=== PATIENT | male | born 1970 | race Caucasian/White ===

== ENCOUNTER 2021-07-18 20:57 | Inpatient (IN) | payer SELFPAY ==
[~2021-07-18] VITALS: Ht 190 cm; Wt 150.0 kg
[2021-07-18] MEDS ORDERED: LACTATED RINGERS 1,000 ML IV ONE (21:45)
[2021-07-18] MEDS ORDERED: fentaNYL INJ 100 MCG/2 ML AMP IVP ONE (21:45)
[2021-07-18 22:19] LABS: BASOPHILS % (AUTO) 0 % (0-10); EOSINOPHILS # (AUTO) 0.1 10^3/uL (0.0-0.3); EOSINOPHILS % (AUTO) 1 % (0-10); HEMATOCRIT 44 % (40-54); HEMOGLOBIN 14.4 g/dL (13.3-17.7); LYMPHOCYTES # (AUTO) 1.6 10^3/uL (1.0-4.0); LYMPHOCYTES % (AUTO) 11 % (12-44); MEAN CORPUSCULAR HEMOGLOBIN 32 pg (25-34); MEAN CORPUSCULAR HGB CONC 33 g/dL (32-36); MEAN CORPUSCULAR VOLUME 97 fL (80-99); MEAN PLATELET VOLUME 9.8 fL (9.0-12.2); MONOCYTES # (AUTO) 0.9 10^3/uL (0.0-1.0); MONOCYTES % (AUTO) 7 % (0-12); NEUTROPHILS # (AUTO) 11.3 10^3/uL (1.8-7.8); NEUTROPHILS % (AUTO) 81 % (42-75); PLATELET COUNT 235 10^3/uL (130-400)
[2021-07-18 22:33] LABS: ALBUMIN 4.2 GM/DL (3.2-4.5); BILIRUBIN,TOTAL 1.1 MG/DL (0.1-1.0); CALCIUM 9.3 MG/DL (8.5-10.1); CREATININE SERUM 1.18 MG/DL (0.60-1.30); POTASSIUM 4.6 MMOL/L (3.6-5.0); TOTAL PROTEIN 7.6 GM/DL (6.4-8.2)
[2021-07-18 22:34] LABS: EOSINOPHILS % (MANUAL) 1 %; LYMPHOCYTES % (MANUAL) 13 %; NEUTROPHILS % (MANUAL) 86 %; RBC MORPH NORMAL
[2021-07-18 23:01] LABS: CLARITY,URINE CLEAR; COLOR,URINE ORANGE; GLUCOSE, URINE (UA) NEGATIVE (NEGATIVE); KETONES,URINE NEGATIVE (NEGATIVE); LEUKOCYTE ESTERASE ,URINE NEGATIVE (NEGATIVE); NITRITE,URINE NEGATIVE (NEGATIVE); PH,URINE 7.5 (5-9); PROTEIN,URINE 2+ (NEGATIVE)
[2021-07-18 23:12] LABS: BACTERIA,URINE TRACE /HPF; BILIRUBIN,URINE 1+ (NEGATIVE); GRANULAR CASTS,URINE 0-2 /LPF; SQUAMOUS EPITHELIAL CELL,UR 0-2 /HPF; WBC,URINE 0-2 /HPF
[2021-07-18] MEDS ORDERED: morphine INJ 10 MG/ML 1ML (SYR OR VIAL) IVP STA (23:20)
[2021-07-18] MEDS ORDERED: IOHEXOL 350 MG/ML 100 ML (OMNIPAQUE 350) VIAL IV ONE (23:30)
[2021-07-18] MEDS ORDERED: HOLD METFORMIN - RECEIVED CONTRAST 20 ML VIAL IV SCH (23:30)
[2021-07-18] MEDS ORDERED: NS 100 ML (IVPB) BAG IV ONE (23:30)
--- NOTE | 2021-07-18 23:52 | ED Abdominal Pain ---
General Chief Complaint: Abdominal/GI Problems Stated Complaint: ABD PAIN / FEVER Nursing Triage Note: C/o abd pain starting bilat up quad to right lower on saturday07/16/21. Denies nausea and vomitting. Reports that he has only had a small bm on saturday but "not a good one in a while". Source of Information: Patient Exam Limitations: No Limitations History of Present Illness Date Seen by Provider: Jul 18, 2021 Time Seen by Provider: 21:24 Initial Comments This 51-year-old gentleman presents to the emergency room with lower abdominal pain that started 3 days ago. He thought perhaps he was constipated and took a laxative and an enema. This did not resolve his symptoms. He reports pain is 8 out of 10. He has pain with walking and movement as well as at rest. He has had chills and sweats developed today. He is afebrile. Denies of vomiting or diarrhea. No bloody stools. No prior episodes. Allergies and Home Medications Allergies Coded Allergies: No Known Drug Allergies (Unverified , 03/21/13) Patient Home Medication List Home Medication List Reviewed: Yes Review of Systems Review of Systems Constitutional: see HPI, chills EENTM: No Symptoms Reported Respiratory: No Symptoms Reported Cardiovascular: No Symptoms Reported Gastrointestinal: See HPI Genitourinary: No Symptoms Reported Musculoskeletal: no symptoms reported Skin: no symptoms reported Psychiatric/Neurological: No Symptoms Reported Endocrine: No Symptoms Reported Past Pfufrpp-Nvbyxx-Neoqnk Hx Patient Social History Tobacco Use?: Yes Tobacco type used: Cigarettes Smoking Status: Current Everyday Smoker Substance use?: No Alcohol Use?: Yes Alcohol Frequency: Rarely Immunizations Up To Date Tetanus Booster (TDap): More than 5yrs Past Medical History Surgeries: Yes Abdominal (Hernia repair at age 6) Respiratory: No Cardiac: No Neurological: No Reproductive Disorders: No Genitourinary: No Gastrointestinal: No Musculoskeletal: No Endocrine: No HEENT: No Cancer: No Psychosocial: No Integumentary: No Physical Exam Vital Signs Vital Signs - First Documented 07/18/21 21:10 Temp 37.3 Pulse 64 Resp 18 B/P (MAP) 104/62 (76) Pulse Ox 98 O2 Delivery Room Air Capillary Refill : Less Than 3 Seconds Height/Weight/BMI Height: '" Weight: lbs. oz. kg; 52.00 BMI Method:Stated General Appearance: WD/WN, moderate distress, obese HEENT: PERRL/EOMI, normal ENT inspection Neck: normal inspection Respiratory: lungs clear, normal breath sounds, no respiratory distress Cardiovascular: regular rate, rhythm, no edema, no murmur Gastrointestinal: soft, abnormal bowel sounds (Decreased), tenderness (Generalized, more intense in the lower quadrants) Extremities: normal inspection, no pedal edema Neurologic/Psychiatric: manager print II-XII nml as tested, no motor/sensory deficits, alert, normal mood/affect, oriented x 3 Skin: normal color, warm/dry Progress/Results/Core Measures Results/Orders Lab Results Laboratory Tests Test 07/18/21 22:07 07/18/21 22:57 Range/Units White Blood Count 14.0 H 4.3-11.0 10^3/uL Red Blood Count 4.57 4.30-5.52 10^6/uL Hemoglobin 14.4 13.3-17.7 g/dL Hematocrit 44 40-54 % Mean Corpuscular Volume 97 80-99 fL Mean Corpuscular Hemoglobin 32 25-34 pg Mean Corpuscular Hemoglobin Concent 33 32-36 g/dL Red Cell Distribution Width 13.5 10.0-14.5 % Platelet Count 235 130-400 10^3/uL Mean Platelet Volume 9.8 9.0-12.2 fL Immature Granulocyte % (Auto) 0 % Neutrophils (%) (Auto) 81 H 42-75 % Lymphocytes (%) (Auto) 11 L 12-44 % Monocytes (%) (Auto) 7 0-12 % Eosinophils (%) (Auto) 1 0-10 % Basophils (%) (Auto) 0 0-10 % Neutrophils # (Auto) 11.3 H 1.8-7.8 10^3/uL Lymphocytes # (Auto) 1.6 1.0-4.0 10^3/uL Monocytes # (Auto) 0.9 0.0-1.0 10^3/uL Eosinophils # (Auto) 0.1 0.0-0.3 10^3/uL Basophils # (Auto) 0.0 0.0-0.1 10^3/uL Immature Granulocyte # (Auto) 0.1 0.0-0.1 10^3/uL Neutrophils % (Manual) 86 % Lymphocytes % (Manual) 13 % Eosinophils % (Manual) 1 % Blood Morphology Comment NORMAL Sodium Level 136 135-145 MMOL/L Potassium Level 4.6 3.6-5.0 MMOL/L Chloride Level 102 98-107 MMOL/L Carbon Dioxide Level 23 21-32 MMOL/L Anion Gap 11 5-14 MMOL/L Blood Urea Nitrogen 10 7-18 MG/DL Creatinine 1.18 0.60-1.30 MG/DL Estimat Glomerular Filtration Rate 65 BUN/Creatinine Ratio 8 Glucose Level 142 H 70-105 MG/DL Calcium Level 9.3 8.5-10.1 MG/DL Corrected Calcium 9.1 8.5-10.1 MG/DL Total Bilirubin 1.1 H 0.1-1.0 MG/DL Aspartate Amino Transf (AST/SGOT) 15 5-34 U/L Alanine Aminotransferase (ALT/SGPT) 20 0-55 U/L Alkaline Phosphatase 67 40-136 U/L C-Reactive Protein High Sensitivity 14.30 H 0.00-0.50 MG/DL Total Protein 7.6 6.4-8.2 GM/DL Albumin 4.2 3.2-4.5 GM/DL Lipase 14 8-78 U/L Urine Color ORANGE Urine Clarity CLEAR Urine pH 7.5 5-9 Urine Specific [place] 1.015 L 1.016-1.022 Urine Protein 2+ H NEGATIVE Urine Glucose (UA) NEGATIVE NEGATIVE Urine Ketones NEGATIVE NEGATIVE Urine Nitrite NEGATIVE NEGATIVE Urine Bilirubin 1+ H NEGATIVE Urine Urobilinogen 0.2 < = 1.0 MG/DL Urine Leukocyte Esterase NEGATIVE NEGATIVE Urine RBC (Auto) NEGATIVE NEGATIVE Urine RBC NONE /HPF Urine WBC 0-2 /HPF Urine Squamous Epithelial Cells 0-2 /HPF Urine Crystals NONE /LPF Urine Bacteria TRACE /HPF Urine Casts PRESENT /LPF Urine Hyaline Casts 2-5 H /LPF Urine Granular Casts 0-2 H /LPF Urine Mucus NEGATIVE /LPF Urine Culture Indicated NO My Orders Orders - EMILIE TRAYLOR MD Cbc With Automated Diff (07/18/21 21:20) Comprehensive Metabolic Panel (07/18/21 21:20) Hs C Reactive Protein (07/18/21 21:20) Lipase (07/18/21 21:20) Ua Culture If Indicated (07/18/21 21:20) Ed Iv/Invasive Line Start (07/18/21 21:20) Lactated Ringers (Lr 1000 Ml Iv Solution (07/18/21 21:45) Fentanyl Inj (Sublimaze Injection) (07/18/21 21:45) Manual Differential (07/18/21 22:07) Ct Abdomen/Pelvis W (07/18/21 22:43) Morphine Injection (Morphine Injection (07/18/21 23:20) Iohexol Injection (Omnipaque 350 Mg/Ml 1 (07/18/21 23:30) Received Contrast (Hold Metformin- Contr (07/18/21 23:30) Ns (Ivpb) (Sodium Chloride 0.9% Ivpb Bag (07/18/21 23:30) Piperacillin Sodium/Tazobactam (Zosyn Vi (07/19/21 00:00) Medications Given in ED Current Medications Medications Dose Ordered Sig/Bobby Route Start Time Stop Time Status Last Admin Dose Admin Fentanyl Citrate 50 mcg ONCE ONCE IVP 07/18/21 21:45 07/18/21 21:46 DC 07/18/21 21:53 50 MCG Iohexol 100 ml ONCE ONCE IV 07/18/21 23:30 07/18/21 23:36 DC 07/18/21 23:29 100 ML Lactated Ringer's 1,000 ml @ 0 mls/hr Q0M ONCE IV 07/18/21 21:45 07/18/21 21:46 DC 07/18/21 21:52 1,000 MLS/HR Sodium Chloride 100 ml ONCE ONCE IV 07/18/21 23:30 07/18/21 23:36 DC 07/18/21 23:29 80 ML Vital Signs/I&O 07/18/21 21:10 Temp 37.3 Pulse 64 Resp 18 B/P (MAP) 104/62 (76) Pulse Ox 98 O2 Delivery Room Air 07/19/21 00:00 Intake Total 1000 ml Balance 1000 ml Blood Pressure Mean: 76 Progress Progress Note : Progress Note Patient was treated with fentanyl, morphine, and IV fluids. WBC and CRP were elevated. Further work-up was pursued with CT scan which revealed acute appendicitis. Case was discussed with Dr. Rizzo who would like to operate as an early case this morning. In the meantime, he requests Zosyn be initiated. The first dose was ordered to receive in the ER. Departure Communication (Admissions) Time/Spoke to Admitting Phy: 23:45 Dr. Rizzo Impression Primary Impression: Acute appendicitis Qualified Codes: K35.20 - Acute appendicitis with generalized peritonitis, without abscess Disposition: ADMITTED INPATIENT Condition: Stable Admissions Decision to Admit Reason: Admit from ER (General) Decision to Admit/Date: Jul 18, 2021 Time/Decision to Admit Time: 23:30 Departure-Patient Inst. Referrals: NO,LOCAL PHYSICIAN (PCP/Family) Primary Care Physician EMILIE TRAYLOR MD Jul 18, 2021 23:52
[2021-07-19] VITALS (10 sets, daily range): BP systolic 96–122; BP diastolic 49–72
[2021-07-19] MEDS ORDERED: PIPERACILLIN SODIUM/TAZOBACTAM 4.5 GM in NS (IVPB) 100 ML IV ONE ×2
[2021-07-19] MEDS ORDERED: LACTATED RINGERS 1,000 ML IV ONE (00:55)
[2021-07-19] MEDS: morphine INJ 4 MG/ML 1 ML (VIAL/SYRINGE) IV PRN ×4 (01:08→18:50)
[2021-07-19] MEDS: LACTATED RINGERS 1,000 ML IV SCH ×4 (01:11→22:50)
[2021-07-19] MEDS ORDERED: ACETAMINOPHEN 325 MG TABLET ONE (03:27)
[2021-07-19] MEDS ORDERED: ACETAMINOPHEN 325 MG TABLET PO PRN (03:30)
[2021-07-19] MEDS: PIPERACILLIN/TAZO 4.5 GM/NS 100 ML IV SCH ×6 (06:02→20:46)
[2021-07-19] MEDS ORDERED: NS IV ONE (06:15)
--- NOTE | 2021-07-19 06:17 | Diagnostic Imaging Report ---
EXAMINATION: CT abdomen and pelvis with intravenous contrast. TECHNIQUE: Multiple contiguous axial images were obtained through the abdomen and pelvis after the uneventful administration of intravenous contrast. All CT scans use one or more of the following dose optimizing techniques: automated exposure control, MA and/or KvP adjustment based on patient size and exam type or iterative reconstruction. HISTORY: Lower abdominal pain. COMPARISON: None available. FINDINGS: The heart is unremarkable. The included lung bases are clear. There is hepatic steatosis. No focal hepatic lesions. The gallbladder is unremarkable. The portal vein is patent. The spleen, pancreas, adrenal glands, and kidneys have a normal appearance. There is no pathologically enlarged mesenteric or retroperitoneal adenopathy. The appendix is fluid-filled and dilated measuring 1.3 cm in diameter. Appendicolith is noted within the neck of the appendix. There is periappendicular fat stranding. No evidence of bowel obstruction. There is a small amount of reactive free fluid in the abdomen and pelvis without evidence of free air. No acute osseous abnormalities. Ureters and bladder are grossly normal. There is no free air, loculated collection, or adenopathy in the pelvis. IMPRESSION: 1. Findings consistent with acute appendicitis. Small amount of free fluid is seen in the pelvis. No evidence of free air. 2. Hepatic steatosis. Agree with overnight report. Dictated by: Dictated on workstation # [id number]
--- NOTE | 2021-07-19 06:19 | History & Physical-Surgical ---
ANDI QUINONEZ MED STUDENT 07/19/21 0619: History of Present Illness History of Present Illness Reason for visit/HPI Patient presented last night to [facility] complaining of severe abdominal pain (8/10) most noticeable in rlq. It started on 07/16 in the evening as a dull supraumbillical pain that progressed to a severe "pinching" pain that has seemed to wax and wane that mainly localized to the rlq with some radiation to the RUQ and supravesicular. He reports subjective fever and sweats with max temp while here of 39.2. Some loss of appetite since saturday, no nausea or vomiting. He reports nothing made it better, and movement seemed to make pain worse. His last "good bowel movement" was saturday night, had small bowel movement saturday night. He last ate some yogurt around 14:30 yesterday. He is not on any blood thinners. Date of Admission Jul 18, 2021 at 23:50 Date Seen by a Provider: Jul 19, 2021 Time Seen by a Provider: 06:00 I consulted on this patient on 07/19/21 06:12 Attending Physician Matthew Rizzo DO Admitting Physician No,Local Physician Consult Allergies and Home Medications Allergies Coded Allergies: No Known Drug Allergies (Unverified , 03/21/13) Patient Home Medication List Home Medication List Reviewed: Yes Past Gvtswas-Pnjlmm-Snnxzc Hx Patient Social History Tobacco Use?: Yes Tobacco type used: Cigarettes Smoking Status: Current Everyday Smoker Smokeless Tobacco Frequency: Never a User Use of E-Cig and/or Vaping dev: No Substance use?: No Alcohol Use?: Yes (avg 1 drink/month) Alcohol Frequency: Rarely Pt feels they are or have been: No Current Status Advance Directives: No Communicates: Verbally Primary Language: Fijian Preferred Spoken Language: Fijian Is interpretation needed?: No Implanted or Applied Medical D: None Past Medical History Surgeries: Abdominal (inguinal hernia repair 6 years old) Currently Using CPAP: No Currently Using BIPAP: No Blood Disorders: No Adverse Reaction/Blood Tranf: No Family Medical History Cancer (greatgrand father (bone)), Diabetes (mother) Review of Systems Constitutional: chills, fever EENTM: No hearing loss, No blurred vision Respiratory: cough (intermittent); No hemoptysis, No short of breath Gastrointestinal: abdominal pain, constipation, loss of appetite Genitourinary: No dysuria; frequency (decreased); No hematuria Musculoskeletal: joint pain, muscle stiffness Skin: No dryness, No lesions, No lumps, No rash Psychiatric/Neurological: Denies Headache, Denies Tingling, Denies Tremors Physical Exam Vital Signs Vital Signs - First Documented 07/18/21 21:10 Temp 37.3 Pulse 64 Resp 18 B/P (MAP) 104/62 (76) Pulse Ox 98 O2 Delivery Room Air Capillary Refill : Less Than 3 Seconds Height, Weight, BMI Height: '" Weight: lbs. oz. kg; 41.55 BMI Method:Stated General Appearance: WD/WN, Mild Distress Eyes: Bilateral Eye Normal Inspection, Bilateral Eye PERRL, Bilateral Eye EOMI HEENT: TMs Normal, Pharynx Normal; No Scleral Icterus (L), No Scleral Icterus (R) Neck: Normal Inspection, Non Tender, Supple Respiratory: Chest Non Tender, Lungs Clear, Normal Breath Sounds, No Accessory Muscle Use, No Respiratory Distress Cardiovascular: Regular Rate, Rhythm, No Murmur, Normal Peripheral Pulses Gastrointestinal: No Guarding, No Rebound; Tenderness (ttp in RLQ, RUQ, LLQ, most focally in RLQ) Rectal: Deferred Back: Normal Inspection, No CVA Tenderness Extremity: Normal Capillary Refill, Normal Range of Motion Neurologic/Psychiatric: Alert, Oriented x3 Skin: Normal Color, Warm/Dry Lymphatic: No Adenopathy (cervical, axilla, groin) Data Review Labs Laboratory Tests 07/18/21 22:07: White Blood Count 14.0H, Red Blood Count 4.57, Hemoglobin 14.4, Hematocrit 44, Mean Corpuscular Volume 97, Mean Corpuscular Hemoglobin 32, Mean Corpuscular Hemoglobin Concent 33, Red Cell Distribution Width 13.5, Platelet Count 235, Mean Platelet Volume 9.8, Immature Granulocyte % (Auto) 0, Neutrophils (%) (Auto) 81H, Lymphocytes (%) (Auto) 11L, Monocytes (%) (Auto) 7, Eosinophils (%) (Auto) 1, Basophils (%) (Auto) 0, Neutrophils # (Auto) 11.3H, Lymphocytes # (Auto) 1.6, Monocytes # (Auto) 0.9, Eosinophils # (Auto) 0.1, Basophils # (Auto) 0.0, Immature Granulocyte # (Auto) 0.1, Neutrophils % (Manual) 86, Lymphocytes % (Manual) 13, Eosinophils % (Manual) 1, Blood Morphology Comment NORMAL, Sodium Level 136, Potassium Level 4.6, Chloride Level 102, Carbon Dioxide Level 23, Anion Gap 11, Blood Urea Nitrogen 10, Creatinine 1.18, Estimat Glomerular Filtration Rate 65, BUN/Creatinine Ratio 8, Glucose Level 142H, Calcium Level 9.3, Corrected Calcium 9.1, Total Bilirubin 1.1H, Aspartate Amino Transf (AST/SGOT) 15, Alanine Aminotransferase (ALT/SGPT) 20, Alkaline Phosphatase 67, C-Reactive Protein High Sensitivity 14.30H, Total Protein 7.6, Albumin 4.2, Lipase 14 07/18/21 22:57: Urine Color ORANGE, Urine Clarity CLEAR, Urine pH 7.5, Urine Specific [place] 1.015L, Urine Protein 2+H, Urine Glucose (UA) NEGATIVE, Urine Ketones NEGATIVE, Urine Nitrite NEGATIVE, Urine Bilirubin 1+H, Urine Urobilinogen 0.2, Urine Leukocyte Esterase NEGATIVE, Urine RBC (Auto) NEGATIVE, Urine RBC NONE, Urine WBC 0-2, Urine Squamous Epithelial Cells 0-2, Urine Crystals NONE, Urine Bacteria TRACE, Urine Casts PRESENT, Urine Hyaline Casts 2-5H, Urine Granular Casts 0-2H, Urine Mucus NEGATIVE, Urine Culture Indicated NO 07/19/21 00:20: SARS-CoV-2 RNA (RT-PCR) Not Detected Assessment/Plan Assessment/Plan Assessment/Plan Acute appendicitis taking for lap appy, risk and benefits discussed patient understands and wishes to precede. MATTHEW RIZZO DO 07/19/21 0639: History of Present Illness History of Present Illness Reason for visit/HPI Patient with umbilical abdominal pain that moved to right lower quadrant. Patient started having pain Saturday and has progressed. Pinching severe pain. Has had fever. Loss of appetite. No n/v. Movement makes worse. Pain medication has helped pain. Denies sweats chills shortness of breath or chest pain. CT scan done demonstrating findings consistent with acute appendicitis. Allergies and Home Medications Allergies Coded Allergies: No Known Drug Allergies (Unverified , 03/21/13) Patient Home Medication List Home Medication List Reviewed: Yes Review of Systems Constitutional: chills, fever EENTM: No hearing loss, No blurred vision Respiratory: No hemoptysis, No short of breath Gastrointestinal: abdominal pain (RLQ), constipation, loss of appetite Genitourinary: No dysuria; frequency (decreased); No hematuria Musculoskeletal: joint pain, muscle stiffness Skin: No dryness, No lesions, No lumps, No rash Psychiatric/Neurological: Denies Headache, Denies Tingling, Denies Tremors All Other Systems Reviewed Negative Unless Noted: Yes (Negative excepted noted.) Physical Exam General Appearance: No Apparent Distress, WD/WN HEENT: PERRL/EOMI, Pharynx Normal Neck: Normal Inspection, Non Tender, Supple Respiratory: Chest Non Tender, No Accessory Muscle Use, No Respiratory Distress Cardiovascular: Regular Rate, Rhythm, No JVD Gastrointestinal: No Guarding, No Rebound; Tenderness (right lower quadrant) Rectal: Deferred Back: Normal Inspection, No CVA Tenderness Extremity: Normal Capillary Refill, Normal Range of Motion Neurologic/Psychiatric: Alert, Oriented x3, Normal Mood/Affect Skin: Normal Color, Warm/Dry Lymphatic: No Adenopathy (cervical, axilla, groin) Assessment/Plan Assessment/Plan Admission Diagonsis rlq abd pain acute appendicitis Admission Status: Observation Assessment/Plan rlq abd pain acute appendicitis fever patient with acute appendicitis discussed risks and benefits of laparoscopic appendectomy all other indicated procedures patient understands and wishes to proceed to or NPO IV hydration Jimenasyn Supervisory-Addendum Brief Verification & Attestation Participated in pt care: history, MDM, physical Personally performed: exam, history, MDM, supervision of care Care discussed with: Medical Student Procedures: n/a Results interpretation: Verified all documentation Verification and Attestation of Medical Student E/M Service A medical student performed and documented this service in my presence. I reviewed and verified all information documented by the medical student and made modifications to such information, when appropriate. I personally performed the physical exam and medical decision making. Matthew Rizzo, Jul 19, 2021,06:44 ANDI QUINONEZ MED STUDENT Jul 19, 2021 06:19 MATTHEW RIZZO DO Jul 19, 2021 06:39
[2021-07-19] MEDS ORDERED: LIDOCAINE/EPI 1%-1:100,000 (XYLOCAINE) 20ML ONE (06:38)
[2021-07-19] MEDS ORDERED: proPOfol 200 MG/20 ML (DIPRIVAN) VIAL IV ONE (06:45)
[2021-07-19] MEDS ORDERED: ONDANSETRON 4 MG/2 ML (SDV) Z0FRAN ONE (06:45)
[2021-07-19] MEDS ORDERED: LIDOCAINE PF 2% 5 ML (XYLOCAINE) VIAL ONE (06:45)
[2021-07-19] MEDS ORDERED: ROCURONIUM 10 MG/ML 5 ML SYRINGE IV ONE ×2 (06:45→08:46)
[2021-07-19] MEDS ORDERED: SUCCINYLCHOLINE INJ 100 MG/5 ML SYR/VIAL ONE (06:45)
[2021-07-19] MEDS ORDERED: fentaNYL INJ 100 MCG/2 ML AMP ONE (06:45)
[2021-07-19] MEDS ORDERED: MIDAZOLAM 2 MG/2 ML (VERSED) VIAL ONE (06:46)
[2021-07-19] MEDS: LACTATED RINGERS 1,000 ML IV PRN ×3 (06:55→09:02)
[2021-07-19] MEDS ORDERED: NEOSTIGMINE 3 MG/3 ML VIAL ONE (10:47)
[2021-07-19] MEDS ORDERED: GLYCOPYRROLATE 0.2 MG/ML (ROBINUL) 2 ML VIAL ONE (10:47)
[2021-07-19] MEDS ORDERED: SEVOFLURANE (ULTANE) 15 ML INHAL SOLN ONE (11:04)
[2021-07-19] MEDS ORDERED: ONDANSETRON 4 MG/2 ML (SDV) Z0FRAN IVP PRN (11:30)
[2021-07-19] MEDS ORDERED: HYDROmorphone 2 MG/ML VIAL (DILAUDID) IV ONE (11:30)
[2021-07-19] MEDS ORDERED: morphine INJ 10 MG/ML 1ML (SYR OR VIAL) IVP ONE (11:30)
[2021-07-19] MEDS ORDERED: PROMETHAZINE INJ 25 MG/ML (PHENERGAN) AMP IVP ONE (11:30)
[2021-07-19] MEDS ORDERED: MEPERIDINE (DEMEROL) INJ 50 MG/ML IVP ONE (11:30)
[2021-07-19 12:40] LABS: HEMATOCRIT 39 % (40-54); HEMOGLOBIN 12.6 g/dL (13.3-17.7); MEAN CORPUSCULAR HEMOGLOBIN 32 pg (25-34); MEAN CORPUSCULAR HGB CONC 33 g/dL (32-36); MEAN CORPUSCULAR VOLUME 98 fL (80-99); MEAN PLATELET VOLUME 9.8 fL (9.0-12.2); PLATELET COUNT 217 10^3/uL (130-400); WHITE BLOOD COUNT 14.2 10^3/uL (4.3-11.0)
[2021-07-19 13:01] LABS: ALBUMIN 3.3 GM/DL (3.2-4.5); CALCIUM 8.2 MG/DL (8.5-10.1); CREATININE SERUM 1.04 MG/DL (0.60-1.30); POTASSIUM 4.6 MMOL/L (3.6-5.0); TOTAL PROTEIN 6.3 GM/DL (6.4-8.2)
[2021-07-19] MEDS ORDERED: IBUP-2185 PO (13:29)
--- NOTE | 2021-07-19 13:34 | Consultation - Hospitalist ---
HPI History of Present Illness: HPI/Chief Complaint Patient is a 51-year-old male who presented to the emergency department due to abdominal pain. He states that it started roughly 3 or 4 days ago. He believes it was just due to constipation and attempted a laxative without improvement. He finally presented to the emergency department as his pain continued to worsen. He was found to have appendicitis and was admitted to the surgery services. He was taken to the OR this morning for perforated appendix with significant necrosis and ultimately needed colon resection. I am consulted for medical management. He denies any known medical problems. He takes no medications at home. He does not follow with a primary care physician. Source: patient Date Seen 07/19/21 Attending Physician Willem Rizzo DO PCP No,Local Physician Referring Physician Date of Admission Jul 18, 2021 at 23:50 Home Medications & Allergies Home Medications Reviewed patient Home Medication Reconciliation performed by pharmacy medication reconciliations automotive drivability technician and/or nursing. Patients Allergies have been reviewed. Allergies Allergies Coded Allergies No Known Drug Allergies (Unverified03/21/13) Past Adskdvk-Fhhgko-Eraiei Hx Patient Social History Tobacco Use?: Yes Tobacco type used: Cigarettes Smoking Status: Current Everyday Smoker Smokeless Tobacco Frequency: Never a User Use of E-Cig and/or Vaping dev: No Substance use?: No Alcohol Use?: Yes Alcohol Frequency: Rarely Pt feels they are or have been: No Current Status Advance Directives: No Communicates: Verbally Primary Language: Bulgarian Preferred Spoken Language: Bulgarian Is interpretation needed?: No Implanted or Applied Medical D: None Past Medical History Surgeries: Abdominal (Hernia repair at age 6) Currently Using CPAP: No Currently Using BIPAP: No Blood Disorders: No Adverse Reaction/Blood Tranf: No Family Medical History Cancer (greatgrand father (bone)), Diabetes (mother) Review of Systems Constitutional: chills; No fever EENTM: no symptoms reported Respiratory: No cough, No short of breath Cardiovascular: No chest pain, No palpitations Gastrointestinal: abdominal pain, constipation; No nausea, No vomiting Genitourinary: no symptoms reported Musculoskeletal: no symptoms reported Skin: no symptoms reported Psychiatric/Neurological: No Symptoms Reported Physical Exam Physical Exam Vital Signs Vital Signs - First Documented 07/18/21 21:10 Temp 37.3 Pulse 64 Resp 18 B/P (MAP) 104/62 (76) Pulse Ox 98 O2 Delivery Room Air Capillary Refill : Less Than 3 Seconds Height, Weight, BMI Height: '" Weight: lbs. oz. kg; 41.55 BMI Method:Stated General Appearance: No Apparent Distress, WD/WN Eyes: Bilateral Eye Normal Inspection, Bilateral Eye PERRL, Bilateral Eye EOMI HEENT: PERRL/EOMI, Moist Mucous Membranes Neck: Normal Inspection, Non Tender, Supple Respiratory: Chest Non Tender, No Accessory Muscle Use, No Respiratory Distress Cardiovascular: Regular Rate, Rhythm, No JVD Gastrointestinal: Guarding, Tenderness (diffuse) Back: Normal Inspection, No CVA Tenderness Extremity: Normal Capillary Refill, Normal Range of Motion, No Pedal Edema Neurologic/Psychiatric: Alert, Oriented x3, Normal Mood/Affect Skin: Normal Color, Warm/Dry Lymphatic: No Adenopathy (cervical, axilla, groin) Results Results/Procedures Labs Laboratory Tests 07/18/21 22:07 07/19/21 12:20 Patient resulted labs reviewed. Imaging: Reviewed Imaging Report Imaging [facility], [place] NAME: ALEX GUILLEN [facility] REC#: [id number] PT STATUS: ADM IN : 1970 PHYSICIAN: EMILIE TRAYLOR MD ADMIT DATE: 07/18/21 Signed Date of Exam:07/18/21 CT ABDOMEN/PELVIS W EXAMINATION: CT abdomen and pelvis with intravenous contrast. TECHNIQUE: Multiple contiguous axial images were obtained through the abdomen and pelvis after the uneventful administration of intravenous contrast. All CT scans use one or more of the following dose optimizing techniques: automated exposure control, MA and/or KvP adjustment based on patient size and exam type or iterative reconstruction. HISTORY: Lower abdominal pain. COMPARISON: None available. FINDINGS: The heart is unremarkable. The included lung bases are clear. There is hepatic steatosis. No focal hepatic lesions. The gallbladder is unremarkable. The portal vein is patent. The spleen, pancreas, adrenal glands, and kidneys have a normal appearance. There is no pathologically enlarged mesenteric or retroperitoneal adenopathy. The appendix is fluid-filled and dilated measuring 1.3 cm in diameter. Appendicolith is noted within the neck of the appendix. There is periappendicular fat stranding. No evidence of bowel obstruction. There is a small amount of reactive free fluid in the abdomen and pelvis without evidence of free air. No acute osseous abnormalities. Ureters and bladder are grossly normal. There is no free air, loculated collection, or adenopathy in the pelvis. IMPRESSION: 1. Findings consistent with acute appendicitis. Small amount of free fluid is seen in the pelvis. No evidence of free air. 2. Hepatic steatosis. Agree with overnight report. Dictated by: Dictated on workstation # [id number] Dict: 07/19/21610 Trans: 07/19/21618 [id number] Interpreted by: ZIGGY HOLM DO Electronically signed by: ZIGGY HOLM DO 07/19/21618 Assessment/Plan Assessment and Plan Assess & Plan/Chief Complaint Perforated appendicitis Sepsis Management per primary Underwent colon resection due to extent of necrosis Continue Zosyn Leukocytosis and fever overnight, blood cultures added Lactic normal, no end organ involvement Hyperglycemia No known history of DM Trend Obesity No acute needs, clinically significant DVT ppx: Lovenox when ok with surgery ELIZ PEREYRA MD Jul 19, 2021 13:34
--- NOTE | 2021-07-19 13:53 | Progress Note-Post Operative ---
Post-Operative Progess Note Surgeon (s)/Reinsurance Analyst (s) Surgeon MATTHEW MEDELLIN DO Reinsurance Analyst: Dr. Veliz Pre-Operative Diagnosis acute appendicitis Post-Operative Diagnosis perforated appendicitis Procedure & Operative Findings Date of Procedure 07/19/21 Procedure Performed/Findings laparoscopic hand assisted right colon resection Anesthesia Type general Estimated Blood Loss Estimated blood loss (mL): 300 mL Specimens/Packing Specimens Removed appendix, ileum, right colon MATTHEW MEDELLIN DO Jul 19, 2021 13:53
[2021-07-19] MEDS: KETOROLAC 15 MG/ML VIAL IVP PRN ×2 (14:48→22:41)
[2021-07-20 04:59] VITALS: BP 114/62
[2021-07-20] MEDS: KETOROLAC 15 MG/ML VIAL IVP PRN ×2 (05:10→14:31)
[2021-07-20] MEDS: PIPERACILLIN/TAZO 4.5 GM/NS 100 ML IV SCH ×6 (05:11→20:36)
[2021-07-20] MEDS: LACTATED RINGERS 1,000 ML IV SCH ×4 (05:11→20:36)
--- NOTE | 2021-07-20 05:59 | OPERATIVE REPORT ---
DATE OF SERVICE: 07/19/2021 PREOPERATIVE DIAGNOSIS: Acute appendicitis. POSTOPERATIVE DIAGNOSIS: Perforated appendicitis. PROCEDURE: Laparoscopic hand-assisted right colon resection. SURGEON: Matthew Rizzo DO SPLICING SUPERVISOR: Dr. Veliz, assisted in retraction, dissection and closure. ESTIMATED BLOOD LOSS: 300 mL. COMPLICATIONS: None. INDICATIONS: The patient is a 51-year-old male, who presented with acute appendicitis. The patient was taken to the operating room after discussed risks and benefits of procedure and wished to proceed. Consent was signed and on the chart. DESCRIPTION OF PROCEDURE: The patient was taken to the operating suite, was prepped and draped in sterile fashion. Timeout was performed. Local anesthetic was infiltrated just above the umbilicus, 11 blade scalpel was used to make a small skin incision and cautery used to dissect down into the fascia, which was then scored and opened and the abdomen was then entered. A 0 Vicryl was placed in a [id number] fashion for closure at the end of the case. A balloon trocar was inserted and pneumoperitoneum was achieved. A 5 mm trocar was placed in the suprapubic region and a 5 mm trocar was placed in left lower quadrant. Prolene material present within the abdomen along the gutter and down the pelvis. The abdomen was then irrigated and the colon was followed down to find the cecum with significant inflammatory changes and phlegmon present. Irrigation was used to irrigate the gutter. Blunt dissection was used to locate the appendix, which was located and began to be elevated. This was then inspected. A perforation of the base of the appendix was present with surrounding fibrinous appearing tissue. The tip of the appendix was able to be located. LigaSure was then used to start to divide the mesoappendix from the appendix just below the appendix, taking it to the base. The cell of the ileum was removed due to being extremely inflamed and also to calender machine operator helper in better visualization. The appendix when elevated, a CESAR stapler was then reinserted and there was fired towards the cecal side of the base of the appendix where the perforation was distal to the staple line. This was then fired and the appendix was removed. Further inspection of this area was more of the base of the appendix was had perforated and a hole was still present within the cecum. Copious amounts of irrigation was used and the area was inspected. At this point, due to the phlegmonous changes, did not remove a portion of the cecum, so decided to convert to a right colon resection with ileocolonic anastomosis. The 12 mm trocar site at the umbilicus was then converted to a hand port using cautery. A hand port was then inserted. A 12 mm trocar was then placed in the subxiphoid region for better visualization. Using the LigaSure and blunt dissection, the right colon was mobilized along the white line of Toldt and also taking down the hepatic flexure. Once mobilized, it was brought out through the hand port. Distal ileum was dissected around and a CESAR-75 stapler was then fired across the ileum and the right colon was dissected around distal to the cecum and an Endo-CESAR 75 stapler was fired across the colon. LigaSure was then used to divide the mesentery removing the specimen. An ileocolonic anastomosis in a [id number] fashion was then created using a linear stapler. A crotch stitch was placed with a 3-0 Vicryl pop-off. The abdomen was then irrigated with copious amounts of irrigation. The anastomosis was patent and appeared viable. There were some adhesions to the liver that were taken down that did have a small tear in the capsule, so a piece of Surgicel was placed over this area. The abdomen was then again irrigated and suctioned. A 19 Callum drain was then placed along the right gutter and brought out through the suprapubic port site. This was secured with 3-0 nylon. The 12 mm trocar in left lower quadrant ports were removed. The left lower quadrant trocar had an epigastric vessel, which was bleeding once the trocar was removed. This had to be ligated with an 0 Vicryl suture. The fascia was then closed using 1-0 looped PDS in a running fashion. The wound was then irrigated with copious amounts of irrigation and the skin incisions were then closed with elicia. The patient was then taken to recovery room in stable condition. Job ID: [id number] DocumentID: [id number] Dictated Date: 07/19/2021 21:32:[address] Date: 07/20/2021 05:58:47 Dictated By: MATTHEW RIZZO DO
[2021-07-20 06:31] LABS: BASOPHILS % (AUTO) 0 % (0-10); EOSINOPHILS # (AUTO) 0.1 10^3/uL (0.0-0.3); EOSINOPHILS % (AUTO) 1 % (0-10); HEMATOCRIT 34 % (40-54); HEMOGLOBIN 10.9 g/dL (13.3-17.7); LYMPHOCYTES # (AUTO) 1.2 10^3/uL (1.0-4.0); LYMPHOCYTES % (AUTO) 10 % (12-44); MEAN CORPUSCULAR HEMOGLOBIN 31 pg (25-34); MEAN CORPUSCULAR HGB CONC 32 g/dL (32-36); MEAN CORPUSCULAR VOLUME 98 fL (80-99); MEAN PLATELET VOLUME 9.8 fL (9.0-12.2); MONOCYTES # (AUTO) 0.7 10^3/uL (0.0-1.0); MONOCYTES % (AUTO) 6 % (0-12); NEUTROPHILS # (AUTO) 9.3 10^3/uL (1.8-7.8); NEUTROPHILS % (AUTO) 82 % (42-75); PLATELET COUNT 194 10^3/uL (130-400); WHITE BLOOD COUNT 11.4 10^3/uL (4.3-11.0)
--- NOTE | 2021-07-20 06:46 | Progress Note - Surgery ---
ANDI QUINONEZ MED STUDENT 07/20/21 0646: Subjective Date Seen by a Provider: Jul 20, 2021 Time Seen by a Provider: 05:45 Subjective/Events-last exam Patient seen at bedside. Resting comfortably on 2l o2 by NC. He is doing "okay". Pain is well controlled (12/24) with medication. He is NPO, he denies n/v. He is having low urine output out of malin, urine is dark yellow, is not passing gas. He has not been out of bed since OR. He denies fevers, sweats, chills, chest pain, or shortness of breath. Review of Systems General: No Chills, No Night Sweats HEENT: No Head Aches, No Visual Changes Pulmonary: No Dyspnea, No Cough Cardiovascular: No: Chest Pain, Palpitations Gastrointestinal: Abdominal Pain; No: Nausea, Vomiting Genitourinary: No Dysuria Musculoskeletal: No: back pain Neurological: No: Numbness, Change in speech Focused Exam Lactate Level 07/19/21 06:25: Lactic Acid Level 1.61 Objective Exam Vital Signs Date Time Temp Pulse Resp B/P (MAP) Pulse Ox O2 Delivery O2 Flow Rate FiO2 07/20/21 04:59 36.8 89 18 114/62 (79) 97 Nasal Cannula 1.00 07/19/21 23:08 36.8 85 20 102/62 (75) 96 Nasal Cannula 2.00 07/19/21 20:33 36.3 90 20 104/64 (77) 99 Nasal Cannula 2.00 07/19/21 19:40 Nasal Cannula 2.00 07/19/21 16:00 36.4 88 20 110/65 (80) 97 Nasal Cannula 2.00 07/19/21 12:25 Nasal Cannula 2.00 07/19/21 12:15 Nasal Cannula 2.00 07/19/21 12:00 36.3 13 106/59 (75) 93 Nasal Cannula 2 07/19/21 12:00 36.4 77 16 122/65 (84) 97 Nasal Cannula 2.00 07/19/21 11:50 18 112/56 (74) 97 OxyMask 10 07/19/21 11:45 OxyMask 10 07/19/21 11:40 20 96/51 (66) 97 OxyMask 10 07/19/21 11:30 21 122/66 (84) 97 OxyMask 10 07/19/21 11:20 18 105/49 (67) 97 OxyMask 10 07/19/21 11:14 36.2 22 100/52 (68) 97 OxyMask 10 07/19/21 11:14 OxyMask 10 I & O 07/20/21 07:00 Intake Total 5240 ml Output Total 1175 ml Balance 4065 ml Capillary Refill : Less Than 3 Seconds General Appearance: No Apparent Distress, WD/WN HEENT: PERRL/EOMI, Moist Mucous Membranes Neck: Normal Inspection, Non Tender, Supple Respiratory: Chest Non Tender, Lungs Clear, Normal Breath Sounds, No Accessory Muscle Use, No Respiratory Distress Cardiovascular: Regular Rate, Rhythm, No Murmur Peripheral Pulses: 2+ Radial Pulses (R), 2+ Radial Pulses (L) Gastrointestinal: soft, tenderness (Appropriately ttp around midline incision. Dressings are clean, dry, intact without strike through. BESSY drain has approx 5mL serosanguinous fluid), other (Malin cath has some pink clotts through out tubing) Extremity: Normal Capillary Refill, Normal Range of Motion, No Pedal Edema Neurologic/Psychiatric: Alert, Oriented x3, Normal Mood/Affect Skin: Normal Color, Warm/Dry Lymphatic: No Adenopathy (cervical, axilla, groin) Results Lab Laboratory Tests 07/19/21 12:20: White Blood Count 14.2H, Red Blood Count 3.97L, Hemoglobin 12.6L, Hematocrit 39L , Mean Corpuscular Volume 98, Mean Corpuscular Hemoglobin 32, Mean Corpuscular Hemoglobin Concent 33, Red Cell Distribution Width 13.5, Platelet Count 217, Mean Platelet Volume 9.8, Sodium Level 138, Potassium Level 4.6, Chloride Level 107, Carbon Dioxide Level 19L, Anion Gap 12, Blood Urea Nitrogen 11, Creatinine 1.04, Estimat Glomerular Filtration Rate 75, BUN/Creatinine Ratio 11, Glucose Level 149H, Calcium Level 8.2L, Corrected Calcium 8.8, Total Bilirubin 2.0H, Aspartate Amino Transf (AST/SGOT) 13, Alanine Aminotransferase (ALT/SGPT) 18, Alkaline Phosphatase 52, Total Protein 6.3L, Albumin 3.3 07/20/21 06:16: White Blood Count 11.4H, Red Blood Count 3.50L, Hemoglobin 10.9L, Hematocrit 34L , Mean Corpuscular Volume 98, Mean Corpuscular Hemoglobin 31, Mean Corpuscular Hemoglobin Concent 32, Red Cell Distribution Width 13.8, Platelet Count 194, Mean Platelet Volume 9.8, Immature Granulocyte % (Auto) 1, Neutrophils (%) (Auto) 82H, Lymphocytes (%) (Auto) 10L, Monocytes (%) (Auto) 6, Eosinophils (%) (Auto) 1, Basophils (%) (Auto) 0, Neutrophils # (Auto) 9.3H, Lymphocytes # (Auto) 1.2, Monocytes # (Auto) 0.7, Eosinophils # (Auto) 0.1, Basophils # (Auto) 0.0, Immature Granulocyte # (Auto) 0.1 Assessment/Plan Assessment/Plan Assessment/Plan Pod#1 lap appy converted Lap hand assisted right colon resection for perforated acute appendicitis oliguria Start clear liquid diet continue pain control continue IV hydration - lactate ringer at 150ml/hour continue Zosyn Start pt/ot Start DVT prophylaxis - Lovenox instructed patient on using IS D/C WILLEM Wilcox DO 07/20/21 2009: Subjective Subjective/Events-last exam Patient's pain controlled at this time. Patient n.p.o. Urine output little low. Urine slightly concentrated. Has some pink sediment using incentive spirometer some. Denies any fever sweats chills shortness of breath or chest pain Objective Exam General Appearance: No Apparent Distress, WD/WN HEENT: PERRL/EOMI, Moist Mucous Membranes Neck: Normal Inspection, Non Tender, Supple Respiratory: Chest Non Tender, No Accessory Muscle Use, No Respiratory Distress Cardiovascular: Regular Rate, Rhythm, No JVD Gastrointestinal: soft, tenderness (Appropriately ttp around midline incision. Dressings are clean, dry, intact without strike through. BESSY drain has serosanguinous fluid) Extremity: Normal Capillary Refill, Normal Range of Motion Neurologic/Psychiatric: Alert, Oriented x3, Normal Mood/Affect Skin: Normal Color, Warm/Dry Lymphatic: No Adenopathy (cervical, axilla, groin) Assessment/Plan Assessment/Plan Assessment/Plan Pod#1 lap appy converted Lap hand assisted right colon resection for perforated acute appendicitis oliguria Right lower quadrant abdominal pain Start clear liquid diet continue pain control continue IV hydration - lactate ringer at 150ml/hour continue Zosyn Start pt/ot DVT prophylaxis SCDs, hold Lovenox until hemoglobin stable instructed patient on using IS Repeat labs in the morning. Continue Malin for accurate I&O Supervisory-Addendum Brief Verification & Attestation Participated in pt care: history, MDM, physical Personally performed: exam, history, MDM, supervision of care Care discussed with: Medical Student Procedures: n/a Results interpretation: Verified all documentation Verification and Attestation of Medical Student E/M Service A medical student performed and documented this service in my presence. I reviewed and verified all information documented by the medical student and made modifications to such information, when appropriate. I personally performed the physical exam and medical decision making. Willem Medellin, Jul 20, 2021,20:09 ANDI QUINONEZ MED STUDENT Jul 20, 2021 06:46 WILLEM MEDELLIN DO Jul 20, 2021 20:09
[2021-07-20 07:01] LABS: CALCIUM 8.1 MG/DL (8.5-10.1); CREATININE SERUM 0.87 MG/DL (0.60-1.30); POTASSIUM 4.1 MMOL/L (3.6-5.0); TOTAL PROTEIN 5.7 GM/DL (6.4-8.2)
[2021-07-20 07:37] VITALS: BP 118/71
--- NOTE | 2021-07-20 09:13 | Progress Note - Hospitalist ---
Subjective HPI/CC On Admission Date Seen by Provider: Jul 20, 2021 Time Seen by Provider: 09:11 Patient is a 51-year-old male who presented to the emergency department due to abdominal pain. He states that it started roughly 3 or 4 days ago. He believes it was just due to constipation and attempted a laxative without improvement. He finally presented to the emergency department as his pain continued to worsen. He was found to have appendicitis and was admitted to the surgery services. He was taken to the OR this morning for perforated appendix with significant necrosis and ultimately needed colon resection. I am consulted for medical management. He denies any known medical problems. He takes no medications at home. He does not follow with a primary care physician. Subjective/Events-last exam Pt reports doing better today though still has pain. Up in chair. No Bm or flatus yet. Focused Exam Lactate Level 07/19/21 06:25: Lactic Acid Level 1.61 Objective Exam Vital Signs Vital Signs Date Time Temp Pulse Resp B/P (MAP) Pulse Ox O2 Delivery O2 Flow Rate FiO2 07/20/21 07:37 36.6 95 16 118/71 (87) 96 Nasal Cannula 1.00 Capillary Refill : Less Than 3 Seconds General Appearance: No Apparent Distress, Obese Respiratory: Lungs Clear, No Respiratory Distress Cardiovascular: Regular Rate, Rhythm, No Murmur Gastrointestinal: Soft, Abnormal Bowel Sounds (quiet), Tenderness (appropriate) Neurologic/Psychiatric: Alert, Oriented x3 Results/Procedures Lab Laboratory Tests 07/19/21 12:20 07/20/21 06:16 Patient resulted labs reviewed. Imaging: Reviewed Imaging Report Assessment/Plan Assessment and Plan Assess & Plan/Chief Complaint Perforated appendicitis Sepsis Management per primary Underwent colon resection due to extent of necrosis POD #1 Continue Zosyn Leukocytosis improving Await cultures Hyperglycemia No known history of DM Trend, fasting this AM was 105 Obesity No acute needs, clinically significant DVT ppx: Lovenox when ok with surgery Will round prn, please call with any questions ELIZ PEREYRA MD Jul 20, 2021 09:13
[2021-07-20 09:30] VITALS: BP 102/60
[2021-07-20] MEDS: morphine INJ 4 MG/ML 1 ML (VIAL/SYRINGE) IV PRN (10:25)
--- NOTE | 2021-07-20 10:42 | Physical Therapy Evaluation ---
PT Evaluation-General Medical Diagnosis Admission Date Jul 18, 2021 at 23:50 Medical Diagnosis: acute appendicitis Onset Date: Jul 18, 2021 Therapy Diagnosis Therapy Diagnosis: debility Precautions Precautions/Isolations: Fall Prevention, Standard Precautions Referral Physician: So Reason for Referral: Evaluation/Treatment Medical History Pertinent Medical History: Smoking Current History ER due to worsening abdominal/ s/p colon resection due to necrosis surrounding appendix Reviewed History: Yes Social History Home: Single Level Current Living Status: Alone Prior Prior Level of Function SCALE: Activities may be completed with or without assistive devices. 3-Ywgonrejbw-xyrtxwm completes the activity by him/herself with no assistance from a helper. 5-Set-up or Clean-up Assistance-helper sets up or cleans up; patient completes activity. Bode assists only prior to or following the activity. 4-Supervision or Touching Assistance-helper provides verbal cues and/or touching/steadying and/or contact guard assistance as patient completes activity. Assistance may be provided throughout the activity or intermittently. 3-Partial/Moderate Assistance-helper does LESS THAN HALF the effort. Bode lifts, holds or supports trunk or limbs, but provides less than half the effort. 2-Substantial/Maximal Assistance-helper does MORE THAN HALF the effort. Bode lifts or holds trunk or limbs and provides more than half the effort. 1-Fbhsndudp-casaqj does ALL the effort. Patient does none of the effort to complete the activity. Or, the assistance of 2 or more helpers is required for the patient to complete the activity. If activity was not attempted, code reason: 7-Patient Refused. 9-Not Applicable-not attempted and the patient did not perform the activity before the current illness, exacerbation or injury. 10-Not Attempted due to Environmental Limitations-(lack of equipment, weather restraints, etc.). 88-Not Attempted due to Medical Conditions or Safety Concerns. Bed Mobility: 6 Transfers (B,C,W/C): 6 Gait: 6 Stairs: 6 Indoor Mobility (Ambulation): Independent Stairs: Independent Prior Devices Use: None works in [employer] PT Evaluation-Current Subjective Patient agrees to PT. Pain Numeric Pain Scale: 5-Moderate Pain Location Body Site: Abdomen Pain Description: Acute Objective Patient Orientation: Normal For Age Attachments: Drains ROM/Strength ROM Lower Extremities bilateral LE WFL Strength Lower Extremities 5/5 grossly bilateral LE Integumentary/Posture Integumentary refer to nursing notes Bowel Incontinence: No Bladder Incontinence: Henry Cath Posture WFL Neuromuscular (Tone, Coordination, Reflexes) grossly intact Sensory Vision: Functional Hearing: Functional Sensation Right Lower Extremit: Intact Sensation Left Lower Extremity: Intact Transfers Roll Left to Right (QC): 6 Sit to Lying (QC): 6 Lying to Sitting/Side of Bed(Q: 6 Sit to Stand (QC): 6 Chair/Kyd-dr-Rwzhv Xfer(QC): 6 Gait Does the Patient Walk?: Yes Mode of Locomotion: Walk Anticipated Mode of Locomotion: Walk Walk 10 feet (QC): 6 Walk 50 ft with 2 Turns(QC): 6 Walk 150 ft (QC): 6 Distance: 500' Gait Assistive Device: FWW Comments/Gait Description FWW for energy conservation due to abdominal discomfort Balance Sitting Static: Normal Sitting Dynamic: Normal Standing Static: Normal Standing Dynamic: Normal Assessment/Needs 51 y.o. male, is currently at [facility] and his encourage to ambulate PRN in hallway independently or with family/staff to promote healing and prevent possible negative side effects i.e. pneumonia, blood clots, bowel issues, etc. Patient voices understanding. No skilled PT indicated. Rehab Potential: Good PT Plan Treatment/Plan Treatment Plan: Discontinue PT, goals met Treatment Duration: Jul 20, 2021 Frequency: 1 time per week Estimated Hrs Per Day: .25 hour per day Patient and/or Family Agrees t: Yes Time/GCodes Time In: 922 Time Out: 937 Total Billed Treatment Time: 15 Total Billed Treatment 1 visit EVMod 15 min KVNG OCASIO PT Jul 20, 2021 10:42
--- NOTE | 2021-07-20 11:06 | Anesthesia-General Post-Op ---
General Patient Condition Mental Status/LOC: Same as Preop Cardiovascular: Satisfactory Nausea/Vomiting: Absent Respiratory: Satisfactory Pain: Controlled Complications: Absent Post Op Complications Complications None Follow Up Care/Instructions Patient Instructions None needed. Anesthesia/Patient Condition Patient Condition Patient is doing well, no complaints, stable vital signs, no apparent adverse anesthesia problems. No complications reported per nursing. CHING SALAZAR CRNA Jul 20, 2021 11:06
[2021-07-20 11:30] VITALS: BP 101/68
--- NOTE | 2021-07-20 11:33 | Occ Therapy Progress Note ---
Therapy Progress Note OT orders received and chart reviewed. OT visited with pt who feels like he is at his PLOF. Per PT note, pt is independent with functional mobility using FWW x500'. Pt states he has no concerns with his ability to complete ADLs upon discharge, as his main barrier at this time is pain. Pt educated on if he has any further concerns with ADLs to have nursing staff reach out to OT department, he verbalized understanding. No skilled OT services indicated at this time as pt is independent with ADLs and at PLOF. D/C from OT. 1, visit 1122 YAS BRISCOE OT Jul 20, 2021 11:33
[2021-07-20 15:41] VITALS: BP_SYST 103; BP_SYST 94; BP_DIAS 62; BP_DIAS 68
[2021-07-20] MEDS ORDERED: NS IV 500 ML 500 ML IV SCH (16:15)
[2021-07-20] MEDS ORDERED: NS IV 500 ML 500 ML ONE (16:44)
[2021-07-20 19:39] VITALS: BP 104/68
[2021-07-20] MEDS: ONDANSETRON 4 MG/2 ML (SDV) Z0FRAN IV PRN (20:44)
[2021-07-21 00:07] VITALS: BP 113/71
[2021-07-21] MEDS: PROMETHAZINE INJ 25 MG/ML (PHENERGAN) AMP IVP PRN ×2 (01:59→09:00)
[2021-07-21 04:25] VITALS: BP 108/66
[2021-07-21] MEDS: PIPERACILLIN/TAZO 4.5 GM/NS 100 ML IV SCH ×6 (04:57→21:21)
[2021-07-21] MEDS: LACTATED RINGERS 1,000 ML IV SCH ×4 (04:57→21:21)
[2021-07-21 06:03] LABS: BASOPHILS % (AUTO) 0 % (0-10); EOSINOPHILS # (AUTO) 0.3 10^3/uL (0.0-0.3); EOSINOPHILS % (AUTO) 2 % (0-10); HEMATOCRIT 31 % (40-54); HEMOGLOBIN 10.2 g/dL (13.3-17.7); LYMPHOCYTES # (AUTO) 1.5 10^3/uL (1.0-4.0); LYMPHOCYTES % (AUTO) 12 % (12-44); MEAN CORPUSCULAR HEMOGLOBIN 32 pg (25-34); MEAN CORPUSCULAR HGB CONC 33 g/dL (32-36); MEAN CORPUSCULAR VOLUME 98 fL (80-99); MEAN PLATELET VOLUME 9.8 fL (9.0-12.2); MONOCYTES # (AUTO) 0.8 10^3/uL (0.0-1.0); MONOCYTES % (AUTO) 7 % (0-12); NEUTROPHILS # (AUTO) 9.3 10^3/uL (1.8-7.8); NEUTROPHILS % (AUTO) 78 % (42-75); PLATELET COUNT 231 10^3/uL (130-400); WHITE BLOOD COUNT 11.9 10^3/uL (4.3-11.0)
[2021-07-21 06:31] LABS: ALBUMIN 3.1 GM/DL (3.2-4.5); BILIRUBIN,TOTAL 0.9 MG/DL (0.1-1.0); CALCIUM 8.5 MG/DL (8.5-10.1); CREATININE SERUM 0.77 MG/DL (0.60-1.30); POTASSIUM 3.9 MMOL/L (3.6-5.0); TOTAL PROTEIN 6.2 GM/DL (6.4-8.2)
[2021-07-21 08:00] VITALS: BP 112/69
--- NOTE | 2021-07-21 10:28 | Progress Note - Surgery ---
ANDI QUINONEZ MED STUDENT 07/21/21 1028: Subjective Date Seen by a Provider: Jul 21, 2021 Time Seen by a Provider: 06:40 Subjective/Events-last exam Patient seen at bedside. He had some n/v overnight. Emesis was billious. His pain is still well controlled (12/24) with medication. He did pass some gas this morning, no bm. His urinary output is starting to increase and is without particulate. Review of Systems General: No Chills, No Night Sweats HEENT: No Visual Changes, No Dysphasia Pulmonary: No Dyspnea; Cough Cardiovascular: No: Chest Pain, Palpitations Gastrointestinal: Nausea, Vomiting, Abdominal Pain Genitourinary: No Incontinence, No Hematuria Musculoskeletal: No: other (no msk complaints) Neurological: No: Weakness, Change in speech Focused Exam Lactate Level 07/19/21 06:25: Lactic Acid Level 1.61 Objective Exam Vital Signs Date Time Temp Pulse Resp B/P (MAP) Pulse Ox O2 Delivery O2 Flow Rate FiO2 07/21/21 08:00 36.1 87 18 112/69 (83) 92 Room Air 07/21/21 08:00 Room Air 07/21/21 04:25 36.8 91 18 108/66 (80) 95 Room Air 07/21/21 00:07 37.0 86 18 113/71 (85) 94 Room Air 07/20/21 20:00 Room Air 07/20/21 19:39 37.3 95 18 104/68 (80) 95 Room Air 07/20/21 15:41 37.0 86 20 103/68 (80) 96 Room Air 07/20/21 11:30 37.0 84 18 101/68 (79) 95 Room Air I & O 07/21/21 07:00 Intake Total 2280 ml Output Total 1605 ml Balance 675 ml Capillary Refill : Less Than 3 Seconds General Appearance: No Apparent Distress, WD/WN HEENT: PERRL/EOMI, Moist Mucous Membranes Neck: Normal Inspection, Non Tender, Supple Respiratory: Chest Non Tender, Lungs Clear, Normal Breath Sounds, No Accessory Muscle Use, No Respiratory Distress Cardiovascular: Regular Rate, Rhythm, No JVD Peripheral Pulses: 2+ Radial Pulses (R), 2+ Radial Pulses (L) Gastrointestinal: soft, tenderness (Appropriately ttp around midline incision. Dressings are saturated, with drainage in umbillicus, BESSY drain has serosanguinous fluid) Extremity: Normal Capillary Refill, Normal Range of Motion Neurologic/Psychiatric: Alert, Oriented x3, Normal Mood/Affect Skin: Normal Color, Warm/Dry Lymphatic: No Adenopathy (cervical, axilla, groin) Results Lab Laboratory Tests 07/21/21 05:33: White Blood Count 11.9H, Red Blood Count 3.21L, Hemoglobin 10.2L, Hematocrit 31L , Mean Corpuscular Volume 98, Mean Corpuscular Hemoglobin 32, Mean Corpuscular Hemoglobin Concent 33, Red Cell Distribution Width 13.6, Platelet Count 231, Mean Platelet Volume 9.8, Immature Granulocyte % (Auto) 0, Neutrophils (%) (Auto) 78H, Lymphocytes (%) (Auto) 12, Monocytes (%) (Auto) 7, Eosinophils (%) (Auto) 2, Basophils (%) (Auto) 0, Neutrophils # (Auto) 9.3H, Lymphocytes # (Auto) 1.5, Monocytes # (Auto) 0.8, Eosinophils # (Auto) 0.3, Basophils # (Auto) 0.0, Immature Granulocyte # (Auto) 0.0, Sodium Level 138, Potassium Level 3.9, Chloride Level 104, Carbon Dioxide Level 23, Anion Gap 11, Blood Urea Nitrogen 10, Creatinine 0.77, Estimat Glomerular Filtration Rate 107, BUN/Creatinine Ratio 13, Glucose Level 103, Calcium Level 8.5, Corrected Calcium 9.2, Total Bilirubin 0.9, Aspartate Amino Transf (AST/SGOT) 13, Alanine Aminotransferase (ALT/SGPT) 15, Alkaline Phosphatase 64, Total Protein 6.2L, Albumin 3.1L Microbiology 07/19/21 Blood Culture - Preliminary, Resulted No growth 07/19/21 MRSA Screen - Final, Complete MRSA not isolated Assessment/Plan Assessment/Plan Assessment/Plan Pod#2 lap appy converted Lap hand assisted right colon resection for perforated acute appendicitis oliguria Right lower quadrant abdominal pain continue as tolerated clear liquid diet continue pain control continue IV hydration - lactate ringer at 150ml/hour continue Zosyn Start pt/ot DVT prophylaxis SCDs, Lovenox instructed patient on using IS Repeat labs in the morning. Continue Henry for accurate I&O WILLEM RIZZO DO 07/21/21 1205: Subjective Subjective/Events-last exam Having emesis after starting liquids. NPO currently. Pain controlled. Urine output still low. Denies fever sweats chills shortness of breath or chest pain. Using IS some. Not really ambulating. Objective Exam General Appearance: No Apparent Distress, WD/WN HEENT: PERRL/EOMI, Normal ENT Inspection Neck: Normal Inspection, Non Tender Respiratory: Chest Non Tender, No Accessory Muscle Use, No Respiratory Distress Cardiovascular: Regular Rate, Rhythm, No JVD Gastrointestinal: soft, tenderness (incisional no signs of infection. BESSY serosang) Extremity: Normal Capillary Refill, Normal Range of Motion Neurologic/Psychiatric: Alert, Oriented x3, Normal Mood/Affect Skin: Normal Color, Warm/Dry Lymphatic: No Adenopathy (cervical, axilla, groin) Assessment/Plan Assessment/Plan Assessment/Plan Pod#2 lap appy converted Lap hand assisted right colon resection for perforated acute appendicitis oliguria Right lower quadrant abdominal pain NPO since emesis, await flatus/bowel function and then restart diet continue pain control continue IV hydration - lactate ringer at 150ml/hour continue Zosyn Start pt/ot DVT prophylaxis SCDs, if hgb stable can then start lovenox instructed patient on using IS Repeat labs in the morning. Continue Henry for accurate I&O Supervisory-Addendum Brief Verification & Attestation Participated in pt care: history, MDM, physical Personally performed: exam, history, MDM, supervision of care Care discussed with: Medical Student Procedures: n/a Results interpretation: Verified all documentation Verification and Attestation of Medical Student E/M Service A medical student performed and documented this service in my presence. I reviewed and verified all information documented by the medical student and made modifications to such information, when appropriate. I personally performed the physical exam and medical decision making. Willem Rizzo, Jul 21, 2021,12:05 ANDI QUINONEZ MED STUDENT Jul 21, 2021 10:28 WILLEM RIZZO DO Jul 21, 2021 12:05
[2021-07-21 12:00] VITALS: BP 119/73
[2021-07-21 15:45] VITALS: BP 131/77
[2021-07-21 19:29] VITALS: BP 144/71
[2021-07-22 00:33] VITALS: BP 136/68
[2021-07-22 04:25] VITALS: BP 140/77
[2021-07-22 05:48] LABS: BASOPHILS % (AUTO) 0 % (0-10); EOSINOPHILS # (AUTO) 0.4 10^3/uL (0.0-0.3); EOSINOPHILS % (AUTO) 4 % (0-10); HEMATOCRIT 31 % (40-54); LYMPHOCYTES # (AUTO) 1.4 10^3/uL (1.0-4.0); LYMPHOCYTES % (AUTO) 14 % (12-44); MEAN CORPUSCULAR HEMOGLOBIN 31 pg (25-34); MEAN CORPUSCULAR HGB CONC 32 g/dL (32-36); MEAN CORPUSCULAR VOLUME 97 fL (80-99); MEAN PLATELET VOLUME 9.7 fL (9.0-12.2); MONOCYTES # (AUTO) 0.8 10^3/uL (0.0-1.0); MONOCYTES % (AUTO) 8 % (0-12); NEUTROPHILS # (AUTO) 7.6 10^3/uL (1.8-7.8); NEUTROPHILS % (AUTO) 74 % (42-75); PLATELET COUNT 237 10^3/uL (130-400); WHITE BLOOD COUNT 10.3 10^3/uL (4.3-11.0)
[2021-07-22 06:06] LABS: BILIRUBIN,TOTAL 0.9 MG/DL (0.1-1.0); CALCIUM 8.3 MG/DL (8.5-10.1); CREATININE SERUM 0.72 MG/DL (0.60-1.30); PHOSPHORUS 2.3 MG/DL (2.3-4.7); POTASSIUM 3.7 MMOL/L (3.6-5.0)
[2021-07-22] MEDS: PIPERACILLIN/TAZO 4.5 GM/NS 100 ML IV SCH ×6 (06:33→20:26)
[2021-07-22 08:32] VITALS: BP 139/68
[2021-07-22] MEDS: LACTATED RINGERS 1,000 ML IV SCH ×3 (09:00→20:26)
--- NOTE | 2021-07-22 11:04 | Progress Note ---
Subjective Date Seen by a Provider: Jul 22, 2021 Time Seen by a Provider: 09:50 Subjective/Events-last exam Patient seen with Dr. Nieto. Patient reports doing well. Minimal abdominal discomfort. No N/V, fever/chills. Passing flatus and had BM this morning. Ambulating. Objective Exam Vital Signs Date Time Temp Pulse Resp B/P (MAP) Pulse Ox O2 Delivery O2 Flow Rate FiO2 07/22/21 08:32 36.5 81 16 139/68 (91) 94 Room Air 07/22/21 08:00 Room Air 07/22/21 04:25 36.7 80 13 140/77 (98) 95 Room Air 07/22/21 00:33 36.9 86 14 136/68 (90) 95 07/21/21 20:00 Room Air 07/21/21 19:29 36.8 85 20 144/71 (95) 95 Room Air 07/21/21 15:45 37.9 93 22 131/77 (95) 95 Room Air 07/21/21 12:00 35.9 87 18 119/73 (88) 95 Room Air I & O 07/22/21 07:00 Intake Total 1000 ml Output Total 1335 ml Balance -335 ml Capillary Refill : Less Than 3 Seconds General Appearance: No Apparent Distress, WD/WN Neck: Normal Inspection, Supple Respiratory: No Accessory Muscle Use, No Respiratory Distress Cardiovascular: Regular Rate, Rhythm, No Edema Gastrointestinal: normal bowel sounds, soft, tenderness, other (Abd BESSY drain with SS drainage) Extremity: Normal Inspection, Normal Range of Motion Neurologic/Psychiatric: Alert, Oriented x3 Skin: Normal Color, Warm/Dry, Other (Abdominal incisions C/D/I) Results Lab Laboratory Tests 07/22/21 05:05: White Blood Count 10.3, Red Blood Count 3.21L, Hemoglobin 10.0L, Hematocrit 31L, Mean Corpuscular Volume 97, Mean Corpuscular Hemoglobin 31, Mean Corpuscular Hemoglobin Concent 32, Red Cell Distribution Width 13.6, Platelet Count 237, Mean Platelet Volume 9.7, Immature Granulocyte % (Auto) 1, Neutrophils (%) (Auto) 74, Lymphocytes (%) (Auto) 14, Monocytes (%) (Auto) 8, Eosinophils (%) (Auto) 4, Basophils (%) (Auto) 0, Neutrophils # (Auto) 7.6, Lymphocytes # (Auto) 1.4, Monocytes # (Auto) 0.8, Eosinophils # (Auto) 0.4H, Basophils # (Auto) 0.0, Immature Granulocyte # (Auto) 0.1, Sodium Level 138, Potassium Level 3.7, Chloride Level 107, Carbon Dioxide Level 21, Anion Gap 10, Blood Urea Nitrogen 10, Creatinine 0.72, Estimat Glomerular Filtration Rate 115, BUN/Creatinine Ratio 14, Glucose Level 94, Calcium Level 8.3L, Corrected Calcium 9.1, Phosphorus Level 2.3, Magnesium Level 2.0, Total Bilirubin 0.9, Aspartate Amino Transf (AST/SGOT) 19, Alanine Aminotransferase (ALT/SGPT) 20, Alkaline Phosphatase 65, Total Protein 6.0L, Albumin 3.0L Microbiology 07/19/21 Blood Culture - Preliminary, Resulted No growth 07/19/21 MRSA Screen - Final, Complete MRSA not isolated Assessment/Plan Assessment/Plan Assess & Plan/Chief Complaint A 51 year old male with Acute appendicitis who is S/P Right colon resection VSS WBC 10.3 Having bowel function - will start clear liquid diet Continue IV abx, pain and nausea meds Good urine output - will ILIR Ledbetter APRN Jul 22, 2021 11:04
[2021-07-22 11:15] VITALS: BP 143/69
[2021-07-22 16:00] VITALS: BP 136/85
[2021-07-22 19:48] VITALS: BP 143/84
[2021-07-23 00:11] VITALS: BP 138/83
[2021-07-23] MEDS: PROMETHAZINE INJ 25 MG/ML (PHENERGAN) AMP IVP PRN (01:53)
[2021-07-23 03:45] VITALS: BP 145/86
[2021-07-23] MEDS: PIPERACILLIN/TAZO 4.5 GM/NS 100 ML IV SCH ×4 (05:26→15:09)
[2021-07-23] MEDS: LACTATED RINGERS 1,000 ML IV SCH (05:26)
[2021-07-23 07:08] LABS: BASOPHILS % (AUTO) 0 % (0-10); EOSINOPHILS # (AUTO) 0.5 10^3/uL (0.0-0.3); EOSINOPHILS % (AUTO) 4 % (0-10); HEMATOCRIT 32 % (40-54); HEMOGLOBIN 10.2 g/dL (13.3-17.7); LYMPHOCYTES # (AUTO) 1.8 10^3/uL (1.0-4.0); LYMPHOCYTES % (AUTO) 16 % (12-44); MEAN CORPUSCULAR HEMOGLOBIN 31 pg (25-34); MEAN CORPUSCULAR HGB CONC 32 g/dL (32-36); MEAN CORPUSCULAR VOLUME 97 fL (80-99); MEAN PLATELET VOLUME 9.2 fL (9.0-12.2); MONOCYTES % (AUTO) 9 % (0-12); NEUTROPHILS # (AUTO) 7.9 10^3/uL (1.8-7.8); NEUTROPHILS % (AUTO) 70 % (42-75); PLATELET COUNT 257 10^3/uL (130-400); WHITE BLOOD COUNT 11.2 10^3/uL (4.3-11.0)
[2021-07-23 07:27] LABS: BILIRUBIN,TOTAL 0.8 MG/DL (0.1-1.0); CALCIUM 8.3 MG/DL (8.5-10.1); CREATININE SERUM 0.74 MG/DL (0.60-1.30); POTASSIUM 3.6 MMOL/L (3.6-5.0); TOTAL PROTEIN 6.1 GM/DL (6.4-8.2)
[2021-07-23 07:40] LABS: NEUTROPHILS % (MANUAL) 65 %
[2021-07-23 07:41] LABS: ATYPICAL LYMPHOCYTES 4 %; EOSINOPHILS % (MANUAL) 5 %; LYMPHOCYTES % (MANUAL) 18 %; MICROCYTOSIS SLIGHT; MONOCYTES % (MANUAL) 8 %; POLYCHROMASIA SLIGHT; TOXIC GRANULATION/VACUOLAZATIO 1+
[2021-07-23 07:54] VITALS: BP 150/89
--- NOTE | 2021-07-23 10:09 | Progress Note ---
Subjective Date Seen by a Provider: Jul 23, 2021 Time Seen by a Provider: 09:30 Subjective/Events-last exam Patient seen with Dr. Nieto. Patient reports doing well. Tolerating clear liquid diet. Having BMs. Reports minimal abdominal tenderness with no N/V. Objective Exam Vital Signs Date Time Temp Pulse Resp B/P (MAP) Pulse Ox O2 Delivery O2 Flow Rate FiO2 07/23/21 08:00 Room Air 07/23/21 07:54 36.8 78 18 150/89 (109) 97 Room Air 07/23/21 03:45 37.5 75 18 145/86 (105) 95 Room Air 07/23/21 00:11 37.2 78 18 138/83 (101) 95 Room Air 07/22/21 20:00 Room Air 07/22/21 19:48 37.2 79 18 143/84 (103) 96 Room Air 07/22/21 16:00 36.7 85 18 136/85 (102) 98 Room Air 07/22/21 11:15 35.9 85 16 143/69 (93) 99 Room Air I & O 07/23/21 07:00 Intake Total 1360 ml Output Total 937 ml Balance 423 ml Capillary Refill : Less Than 3 Seconds General Appearance: No Apparent Distress, WD/WN Neck: Normal Inspection, Supple Respiratory: No Accessory Muscle Use, No Respiratory Distress Cardiovascular: Regular Rate, Rhythm, No Edema Gastrointestinal: normal bowel sounds, soft, tenderness, other (Abdominal incisions C/D/I. Abdominal BESSY drain with clear SS drainage) Extremity: Normal Inspection, Normal Range of Motion Neurologic/Psychiatric: Alert, Oriented x3 Skin: Normal Color, Warm/Dry Results Lab Laboratory Tests 07/23/21 06:59: White Blood Count 11.2H, Red Blood Count 3.28L, Hemoglobin 10.2L, Hematocrit 32L , Mean Corpuscular Volume 97, Mean Corpuscular Hemoglobin 31, Mean Corpuscular Hemoglobin Concent 32, Red Cell Distribution Width 13.7, Platelet Count 257, Mean Platelet Volume 9.2, Immature Granulocyte % (Auto) 1, Neutrophils (%) (Auto) 70, Lymphocytes (%) (Auto) 16, Monocytes (%) (Auto) 9, Eosinophils (%) (Auto) 4, Basophils (%) (Auto) 0, Neutrophils # (Auto) 7.9H, Lymphocytes # (Auto) 1.8, Monocytes # (Auto) 1.0, Eosinophils # (Auto) 0.5H, Basophils # (Auto) 0.0, Immature Granulocyte # (Auto) 0.1, Neutrophils % (Manual) 65, Lymphocytes % (Manual) 18, Monocytes % (Manual) 8, Eosinophils % (Manual) 5, Atypical Lymphocytes 4, Toxic Granulation 1+, Polychromasia SLIGHT, Microcytosis SLIGHT, Sodium Level 140, Potassium Level 3.6, Chloride Level 108H, Carbon Dioxide Level 21, Anion Gap 11, Blood Urea Nitrogen 7, Creatinine 0.74, Estimat Glomerular Filtration Rate 112, BUN/Creatinine Ratio 9, Glucose Level 104, Calcium Level 8.3L, Corrected Calcium 9.1, Total Bilirubin 0.8, Aspartate Amino Transf (AST/SGOT) 24, Alanine Aminotransferase (ALT/SGPT) 31, Alkaline Phosphatase 60, Total Protein 6.1L, Albumin 3.0L Microbiology 07/19/21 Blood Culture - Preliminary, Resulted No growth 07/19/21 MRSA Screen - Final, Complete MRSA not isolated Assessment/Plan Assessment/Plan Assess & Plan/Chief Complaint A 51 year old male with Acute appendicitis who is S/P Right colon resection VSS WBC 11.2 Will advance diet to regular diet Continue IV abx, pain and nausea meds encourage ambulation ILIR MURCIA CHISEL WORKER Jul 23, 2021 10:09
--- NOTE | 2021-07-23 10:09 | Progress Note ---
Subjective Date Seen by a Provider: Jul 23, 2021 Time Seen by a Provider: 10:00 Subjective/Events-last exam doing well. having multiple BM's. pain controlled. Objective Exam Vital Signs Date Time Temp Pulse Resp B/P (MAP) Pulse Ox O2 Delivery O2 Flow Rate FiO2 07/23/21 08:00 Room Air 07/23/21 07:54 36.8 78 18 150/89 (109) 97 Room Air 07/23/21 03:45 37.5 75 18 145/86 (105) 95 Room Air 07/23/21 00:11 37.2 78 18 138/83 (101) 95 Room Air 07/22/21 20:00 Room Air 07/22/21 19:48 37.2 79 18 143/84 (103) 96 Room Air 07/22/21 16:00 36.7 85 18 136/85 (102) 98 Room Air 07/22/21 11:15 35.9 85 16 143/69 (93) 99 Room Air I & O 07/23/21 07:00 Intake Total 1360 ml Output Total 937 ml Balance 423 ml Capillary Refill : Less Than 3 Seconds General Appearance: No Apparent Distress HEENT: PERRL/EOMI Neck: Full Range of Motion Respiratory: Chest Non Tender, Lungs Clear, Normal Breath Sounds Cardiovascular: Regular Rate, Rhythm Gastrointestinal: soft, tenderness Extremity: Normal Capillary Refill Neurologic/Psychiatric: Alert, Oriented x3 Skin: Normal Color Lymphatic: No Adenopathy Results Lab Laboratory Tests 07/23/21 06:59: White Blood Count 11.2H, Red Blood Count 3.28L, Hemoglobin 10.2L, Hematocrit 32L , Mean Corpuscular Volume 97, Mean Corpuscular Hemoglobin 31, Mean Corpuscular Hemoglobin Concent 32, Red Cell Distribution Width 13.7, Platelet Count 257, Mean Platelet Volume 9.2, Immature Granulocyte % (Auto) 1, Neutrophils (%) (Auto) 70, Lymphocytes (%) (Auto) 16, Monocytes (%) (Auto) 9, Eosinophils (%) (Auto) 4, Basophils (%) (Auto) 0, Neutrophils # (Auto) 7.9H, Lymphocytes # (Auto) 1.8, Monocytes # (Auto) 1.0, Eosinophils # (Auto) 0.5H, Basophils # (Auto) 0.0, Immature Granulocyte # (Auto) 0.1, Neutrophils % (Manual) 65, Lymphocytes % (Manual) 18, Monocytes % (Manual) 8, Eosinophils % (Manual) 5, Atypical Lymphocytes 4, Toxic Granulation 1+, Polychromasia SLIGHT, Microcytosis SLIGHT, Sodium Level 140, Potassium Level 3.6, Chloride Level 108H, Carbon Dioxide Level 21, Anion Gap 11, Blood Urea Nitrogen 7, Creatinine 0.74, Estimat Glomerular Filtration Rate 112, BUN/Creatinine Ratio 9, Glucose Level 104, Calcium Level 8.3L, Corrected Calcium 9.1, Total Bilirubin 0.8, Aspartate Amino Transf (AST/SGOT) 24, Alanine Aminotransferase (ALT/SGPT) 31, Alkaline Phosphatase 60, Total Protein 6.1L, Albumin 3.0L Microbiology 07/19/21 Blood Culture - Preliminary, Resulted No growth 07/19/21 MRSA Screen - Final, Complete MRSA not isolated Assessment/Plan Assessment/Plan Assess & Plan/Chief Complaint s/p RHC for perf appendicitis. regular diet. continue ambulation. DIOMEDES PERES MD Jul 23, 2021 10:09
[2021-07-23 12:06] VITALS: BP_SYST 134; BP_SYST 34; BP_DIAS 83
[2021-07-23 16:00] VITALS: BP 135/84
[2021-07-23 20:00] VITALS: BP 133/77
[2021-07-24] VITALS: BP 134/78
[2021-07-24] MEDS: LACTATED RINGERS 1,000 ML IV SCH ×3 (02:41→14:50)
[2021-07-24 04:41] VITALS: BP 128/85
[2021-07-24 06:12] LABS: BASOPHILS % (AUTO) 0 % (0-10); EOSINOPHILS # (AUTO) 0.4 10^3/uL (0.0-0.3); EOSINOPHILS % (AUTO) 4 % (0-10); HEMATOCRIT 32 % (40-54); HEMOGLOBIN 10.3 g/dL (13.3-17.7); LYMPHOCYTES # (AUTO) 2.3 10^3/uL (1.0-4.0); LYMPHOCYTES % (AUTO) 19 % (12-44); MEAN CORPUSCULAR HEMOGLOBIN 31 pg (25-34); MEAN CORPUSCULAR HGB CONC 32 g/dL (32-36); MEAN CORPUSCULAR VOLUME 97 fL (80-99); MEAN PLATELET VOLUME 9.4 fL (9.0-12.2); MONOCYTES % (AUTO) 9 % (0-12); NEUTROPHILS % (AUTO) 67 % (42-75); PLATELET COUNT 287 10^3/uL (130-400); WHITE BLOOD COUNT 11.9 10^3/uL (4.3-11.0)
[2021-07-24 06:32] LABS: BILIRUBIN,TOTAL 0.6 MG/DL (0.1-1.0); CALCIUM 8.4 MG/DL (8.5-10.1); CREATININE SERUM 0.74 MG/DL (0.60-1.30); POTASSIUM 3.8 MMOL/L (3.6-5.0); TOTAL PROTEIN 6.4 GM/DL (6.4-8.2)
--- NOTE | 2021-07-24 06:45 | Progress Note - Surgery ---
SUGARALAN 07/24/21 0645: Subjective Time Seen by a Provider: 06:20 Subjective/Events-last exam Patient seen at [facility] this morning. He is post-op day 5 for appendectomy transitioned to right partial hemicolectomy. He reports slight tenderness in the hypogastric region that has improved since surgery. Normal bowel movements, ambulation, and is on a regular diet. He has no emesis, nausea, or melena. Review of Systems General: No Chills, No Fatigue HEENT: No Head Aches, No Visual Changes Pulmonary: No Dyspnea, No Cough Cardiovascular: No: Chest Pain, Edema Gastrointestinal: No: Nausea, Vomiting, Diarrhea, Melena, Hematochezia Genitourinary: No Dysuria, No Incontinence Musculoskeletal: No: shoulder pain, arm pain Neurological: No: Weakness, Numbness Objective Exam Vital Signs Date Time Temp Pulse Resp B/P (MAP) Pulse Ox O2 Delivery O2 Flow Rate FiO2 07/24/21 04:41 36.3 79 20 128/85 (99) 97 Room Air 07/24/21 00:00 36.7 80 17 134/78 (96) 97 Room Air 07/23/21 20:00 36.4 78 20 133/77 (95) 97 Room Air 07/23/21 20:00 Room Air 07/23/21 16:00 36.4 75 20 135/84 (101) 96 Room Air 07/23/21 12:06 36.8 78 20 134/83 (100) 96 Room Air 07/23/21 08:00 Room Air 07/23/21 07:54 36.8 78 18 150/89 (109) 97 Room Air I & O 07/24/21 07:00 Intake Total 1834 ml Output Total 7 ml Balance 1827 ml Capillary Refill : Less Than 3 Seconds General Appearance: No Apparent Distress, WD/WN HEENT: PERRL/EOMI, Normal ENT Inspection Neck: Full Range of Motion, Normal Inspection, Non Tender Respiratory: Chest Non Tender, Lungs Clear, Normal Breath Sounds, No Accessory Muscle Use Cardiovascular: Regular Rate, Rhythm, No Edema Peripheral Pulses: 2+ Dorsalis Pedis (R), 2+ Left Dors-Pedis (L), 2+ Radial Pulses (R), 2+ Radial Pulses (L) Gastrointestinal: soft; No guarding, No rebound; tenderness (hypogastric region upon palpation; incisions are nonerythematous without ecchymosis ) Extremity: Normal Inspection, Non Tender, No Pedal Edema Neurologic/Psychiatric: Alert, Oriented x3, No Motor/Sensory Deficits, Normal Mood/Affect Skin: Normal Color, Warm/Dry Lymphatic: No Adenopathy Results Lab Laboratory Tests 07/23/21 06:59: White Blood Count 11.2H, Red Blood Count 3.28L, Hemoglobin 10.2L, Hematocrit 32L , Mean Corpuscular Volume 97, Mean Corpuscular Hemoglobin 31, Mean Corpuscular Hemoglobin Concent 32, Red Cell Distribution Width 13.7, Platelet Count 257, Mean Platelet Volume 9.2, Immature Granulocyte % (Auto) 1, Neutrophils (%) (Auto) 70, Lymphocytes (%) (Auto) 16, Monocytes (%) (Auto) 9, Eosinophils (%) (Auto) 4, Basophils (%) (Auto) 0, Neutrophils # (Auto) 7.9H, Lymphocytes # (Auto) 1.8, Monocytes # (Auto) 1.0, Eosinophils # (Auto) 0.5H, Basophils # (Auto) 0.0, Immature Granulocyte # (Auto) 0.1, Neutrophils % (Manual) 65, Lymphocytes % (Manual) 18, Monocytes % (Manual) 8, Eosinophils % (Manual) 5, Atypical Lymphocytes 4, Toxic Granulation 1+, Polychromasia SLIGHT, Microcytosis SLIGHT, Sodium Level 140, Potassium Level 3.6, Chloride Level 108H, Carbon Dioxide Level 21, Anion Gap 11, Blood Urea Nitrogen 7, Creatinine 0.74, Estimat Glomerular Filtration Rate 112, BUN/Creatinine Ratio 9, Glucose Level 104, Calcium Level 8.3L, Corrected Calcium 9.1, Total Bilirubin 0.8, Aspartate Amino Transf (AST/SGOT) 24, Alanine Aminotransferase (ALT/SGPT) 31, Alkaline Yue sphatase 60, Total Protein 6.1L, Albumin 3.0L 07/24/21 05:45: White Blood Count 11.9H, Red Blood Count 3.32L, Hemoglobin 10.3L, Hematocrit 32L , Mean Corpuscular Volume 97, Mean Corpuscular Hemoglobin 31, Mean Corpuscular Hemoglobin Concent 32, Red Cell Distribution Width 14.0, Platelet Count 287, Mean Platelet Volume 9.4, Immature Granulocyte % (Auto) 1, Neutrophils (%) (Auto) 67, Lymphocytes (%) (Auto) 19, Monocytes (%) (Auto) 9, Eosinophils (%) (Auto) 4, Basophils (%) (Auto) 0, Neutrophils # (Auto) 8.0H, Lymphocytes # (Auto) 2.3, Monocytes # (Auto) 1.0, Eosinophils # (Auto) 0.4H, Basophils # (Auto) 0.0, Immature Granulocyte # (Auto) 0.1, Sodium Level 142, Potassium Level 3.8, Chloride Level 111H, Carbon Dioxide Level 19L, Anion Gap 12, Blood Urea Nitrogen 6L, Creatinine 0.74, Estimat Glomerular Filtration Rate 112, BUN/Creatinine Ratio 8, Glucose Level 115H, Calcium Level 8.4L, Corrected Calcium 9.2, Total Bilirubin 0.6, Aspartate Amino Transf (AST/SGOT) 39H, Alanine Aminotransferase (ALT/SGPT) 52, Alkaline Phosphatase 68, Total Protein 6.4, Albumin 3.0L Microbiology 07/19/21 Blood Culture - Preliminary, Resulted No growth 07/19/21 MRSA Screen - Final, Complete MRSA not isolated Meds Item Value Date Time Promethazine HCl 25 mg 07/20/21 2315 (Phenergan Q4H PRN/IVP 07/23/21 0153 Injection) Ketorolac 15 mg 07/19/21 1415 Tromethamine Q6H PRN/IVP 07/20/21 1431 (Toradol Injection) Ondansetron HCl 4 mg 07/19/21 1130 (Zofran Q10M PRN/IVP Injection (Sdv)) Acetaminophen 650 mg 07/19/21 0330 (Tylenol Tablet) Q6HR PRN/PO 07/19/21 0330 Ondansetron HCl 4 mg 07/19/21 0100 (Zofran Q4H PRN/IV 07/20/21 2044 Injection (Sdv)) Morphine Sulfate 5 mg 07/19/21 0100 (morphine Q2H PRN/IV 07/20/21 1025 INJECTION) Lactated Ringer's 1,000 ml @ 150 mls/hr 07/19/21 0100 Assessment/Plan Assessment/Plan Assessment/Plan Post-op day 5 for right brittaney-colectomy for perforated appendicitis. Regular diet resumed. Continue ambulation. Zosyn discontinued. Continue daily CBC and CMP to monitor risk of infection and electrolyte abnormalities. MATTHEW RIZZO DO 07/24/21 1358: Subjective Subjective/Events-last exam Toleraing diet. Using IS. Pain controlled. Having bowel function. Denies n/v fever sweats chills shortness of breath or chest pain. Objective Exam General Appearance: No Apparent Distress, WD/WN HEENT: PERRL/EOMI, Normal ENT Inspection Neck: Normal Inspection, Non Tender Respiratory: Chest Non Tender Cardiovascular: Regular Rate, Rhythm, No JVD Gastrointestinal: tenderness ( incisions are nonerythematous without ecchymosis drain minimal output) Extremity: Normal Inspection, Non Tender Neurologic/Psychiatric: Alert, Oriented x3, No Motor/Sensory Deficits, Normal Mood/Affect Skin: Normal Color, Warm/Dry Lymphatic: No Adenopathy Assessment/Plan Assessment/Plan Assessment/Plan Post-op day 5 for right brittaney-colectomy for perforated appendicitis. Regular diet resumed. Continue ambulation. Augmentin 875 bid Doing well. DC drain. Dc home. Supervisory-Addendum Brief Verification & Attestation Participated in pt care: history, MDM, physical Personally performed: exam, history, MDM, supervision of care Care discussed with: Medical Student Procedures: n/a Results interpretation: Verified all documentation Verification and Attestation of Medical Student E/M Service A medical student performed and documented this service in my presence. I reviewed and verified all information documented by the medical student and made modifications to such information, when appropriate. I personally performed the physical exam and medical decision making. Matthew Rizzo, Jul 24, 2021,13:58 ALAN WOOTEN Jul 24, 2021 06:45 MATTHEW RIZZO DO Jul 24, 2021 13:58
[2021-07-24 08:20] VITALS: BP 127/82
[2021-07-24] MEDS ORDERED: AUGMENTIN 875 MG TAB (AMOXICILLIN/CLAVULANATE) PO SCH (09:24)
[2021-07-24 11:46] VITALS: BP 130/87
[2021-07-24] MEDS ORDERED: AMOX1TAB12 PO (13:53)
[2021-07-24] MEDS ORDERED: ACHD5005 PO (13:53)
[2021-07-24] MEDS: ONDANSETRON 4 MG/2 ML (SDV) Z0FRAN IV PRN (13:55)
--- NOTE | 2021-07-24 13:55 | Discharge Inst-Simple/Standard ---
Discharge Inst-Standard Discharge Medications New, Converted or Re-Newed RX: Transmitted to Pharmacy Patient Instructions/Follow Up Plan of Care/Instructions/FU: 2 weeks So Activity as Tolerated: No Discharge Diet: Regular Diet Other Inst to Patient Follow up Appt: Make appointment for 2 week. Instructions: No lifting greater than 10 pounds. No strenuous activity. May shower in 24 hours, no tub bath or soaking. Use incentive spirometer at home as directed. No Smoking Skin/Wound Care: Keep area clean and dry. Daily dressing change to where drain was placed, until it seals over. Symptoms to Report: Appetite Changes, Extremity Discoloration, Numbness/Tingling, Swelling Increased, Bleeding Excessive, Eyesight Changes, Pain Increased, Urine Color Change, Constipation(Persistent), Fever over 101 degree F, Pain/Pressure in chest, Urinating Difficulty, Cough Up/Vomit Blood, Heart Beat Irreg/Pounding, Pain/Pressure in jaw, Vaginal Bleeding Increase, Cramps in feet or legs, Lightheadedness, Pain/Pressure in shoulder, Diarrhea(Persistent), Memory Changes Suddenly, Questions/Concerns, Weight gain consecutive days, Dizziness/Fainting, Nausea/Vomiting, Shortness of Breath, Weight gain over 2 pounds If questions or concerns contact your physician Or seek help at emergency department. MATTEHW MEDELLIN DO Jul 24, 2021 13:55
[2021-07-24 15:05] VITALS: BP 130/87
--- NOTE | 2021-07-25 11:09 | DISCHARGE SUMMARY ---
DATE OF SERVICE: ADMITTING DIAGNOSIS: Acute appendicitis. DISCHARGE DIAGNOSES: Perforated appendicitis, sepsis, hypoglycemia, obesity, status post right colon resection. ADMITTING PHYSICIAN: Matthew Rizzo DO CONSULTING PHYSICIAN: Dr. Drummond. HOSPITAL COURSE: The patient is a 51-year-old male who presented to the Emergency Department on 07/18/2021. The patient was admitted to the hospital on 07/19/2021. The patient had a CT scan, had findings consistent with acute appendicitis with a small amount of free fluid in the pelvis. No free air, hepatic steatosis. The patient was taken to the operating room for laparoscopic appendectomy and was found to have a perforated appendicitis, which was at the base of the appendix, making cecum with significant inflammatory changes present to where a right colon resection had to be performed. The patient had laparoscopic hand-assisted right colon resection. The patient was admitted postoperatively. He is continued on antibiotics of Zosyn. The patient was slowly advanced diet. He is ambulating. The patient will be discharged home on 07/24/2021. Please see medication discharge orders. The patient was given postoperative instructions. The patient will follow up in the office in 2 weeks. Job ID: [id number] DocumentID: [id number] Dictated Date: 07/24/2021 14:20:53 Freight Dispatcher Date: 07/25/2021 11:08:57 Dictated By: MATTHEW RIZZO DO [facility]
--- NOTE | 2021-07-25 13:11 | Physician Query Clarification ---
PQ-Uncertain Diagnosis Admission/Discharge Admission Date: Jul 18, 2021 at 23:50 Discharge Date: Jul 24, 2021 at 15:05 Dr. Rizzo, The medical record reflects the following clinical scenario: History/Risk Factors: acute perforated appendicitis Clinical Findings: WBC 14.0, Lactic acid 1.61, T 39.2, P 91, R 22 Treatment: IV Pipercillin Question: Is sepsis a clinically valid diagnosis? Sepsis was documented in Dr. Mcfarland's consult and PN with no further documentation in the medical record. If yes, please clarify if sepsis was present on admission or not. Please document a response in Progress Note or Discharge Summary. 1. Yes, clinically valid and present on admission, condition resolved. 2. No, condition ruled out. 3. Yes, clinically valid but not present o admission, condition resolved. 4. Other, with explanation of clinical findings. 5. Undetermined, no explanation for clinical findings. PHYSICIAN RESPONSE Diagnosis clinically valid: Yes, Conditon resolved Please remember a lack of response to the above will prompt a phone page by [facility]oding staff. In responding to this query, please exercise your independent professional judgment. The purpose of this communication is to more accurately reflect the complexity of your patients condition. The fact that a question is asked does not imply that any particular answer is desired or expected. Thank you for your timely response to this clarification. Requestors name: Dimitri THIS PHYSICIAN QUERY FORM IS A PERMANENT PART OF THE MEDICAL RECORD DIMITRI LOPEZ Jul 25, 2021 13:11 MATTHEW RIZZO DO Aug 07, 2021 19:39
== END 2021-07-24 15:05 | disposition home or self-care (01) | DRG 853 ==
LOC: EDUNIT# 20:57 → ER 20:59 → 4TH 23:50 → UNDOADMIN 07-19 → 4TH 07-19
PROVIDERS: ADMIT Surgery; ATTEND Surgery
PROC: 0DBB0ZZ Excision of Ileum, Open Approach (ICD-10-PCS; 2021-07-19)
PROC: 0DTH0ZZ Resection of Cecum, Open Approach (ICD-10-PCS; 2021-07-19)
PROC: 0DTJ4ZZ Resection of Appendix, Percutaneous Endoscopic Approach (ICD-10-PCS; principal; 2021-07-19 06:56)
DX: A41.9 Sepsis, unspecified organism (principal); K35.33 Acute appendicitis with perforation, localized peritonitis, and gangrene, with abscess; Z68.41 Body mass index [BMI] 40.0-44.9, adult; F17.210 Nicotine dependence, cigarettes, uncomplicated; R34 Anuria and oliguria; R73.9 Hyperglycemia, unspecified; E66.9 Obesity, unspecified; Z20.822 Contact with and (suspected) exposure to COVID-19
CPT/HCPCS: 36415; 74177; 80053; 81000; 83605; 83690; 83735; 84100; 85007; 85025; 85027; 86141; 87040; 87081; 87636; 88304; 88307; 96374; 96375